=== PATIENT | female | born 2000 | race African-American/Black ===

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

== ENCOUNTER 2023-08-09 13:13 | Emergency (ER) | payer MEDICAID, SELFPAY ==
[2023-08-09 13:18] VITALS: PULSE 82; RESP 20; TEMP 36.5; O2SAT 99
--- NOTE | 2023-08-09 13:45 | DI.RAD_ITS ---
Exam(s) XR ANKLE LT COMPLETE EXAM: XR ANKLE LT COMPLETE CLINICAL HISTORY: left lateral ankle pain. TECHNIQUE: 2D digital imaging was performed. COMPARISON: No exams were available for comparison FINDINGS: 3 views no evidence of acute fracture nor widening of the ankle mortise. Talar dome unremarkable. No degenera tive changes. No osseous tarsal coalition evident. Bone density normal. No osseous lesions IMPRESSION: No fractures. DATA REPOSITORY: RADIATION DOSE DELIVERED:
--- NOTE | 2023-08-09 14:12 | ED.GENADUL_ITS ---
Discharge Plan Disposition Patient Disposition: Home Condition: Good Discharge Details Chief Complaint: Orthopedic Clinical Impression: Left ankle sprain Primary Care Provider: Karin Vo ED Provider: Dion Ca Home Meds and New Rx's Prescriptions: No Action medroxyprogesterone [Depo-Provera] 150 MG/ML suspension 150 mg IM DIRECTED Discharge Instructions Instructions: Ankle Sprain (ED) Additional Instructions: At this time your x-ray shows no evidence of fracture. I do suspect that you have a sprain of the ligaments. We will be giving you a walking boot to utilize at home. Utilize this for the next 1 to 2 weeks to continue to allow the ankle to heal. He can then transition to a walking lace up ankle brace. If you still have continued pain after 1 to 2 weeks of this, you may need further physical therapy on an outpatient basis. Take Tylenol and Motrin as needed for pain. If you notice any worsening of your symptoms, or any new symptoms such as vomiting, diarrhea, fever, chills, shortness of breath, chest pain, numbness, weakness, or fainting , please return immediately to the emergency department for reevaluation. Please follow up with your primary care provider as soon as possible for reassessment and reevaluation. As always, it was a pleasure participating in your medical care today. Referrals: Karin Vo MD [Primary Care Provider] - Medical Decision Making 23-year-old female with a past medical history of Lyme disease, fibromyalgia, presents today for evaluation of left ankle pain for the past month. Patient states that 1 month ago she was walking out of her camper when her left ankle rolled, she had immediate pain and swelling. That has continued over the last month and is gradually improved but still persist with ambulation. It is improved by rest and NSAIDs. She never got initial imaging. She denies any numbness or tingling. She denies any other trauma. No other injury. No other complaints at this time. Exam demonstrates mild tenderness on the lateral aspect of the ankle just inferior to the malleolus. Minimal pain with eversion and inversion. Concern for previous ligamentous injury now with scarring causing pain. Fracture unlikely. We will get x-ray to rule out fracture. X-ray results negative for acute fracture per radiology. Will give walking boot for home use for stability. Discussed red flags for which to return. We will place physical therapy referral. I have extensively reviewed the treatment plan and discharge instructions with the patient. I have addressed all patient concerns at this time. The patient was made aware of what symptoms to monitor for that would warrant a return to the emergency department. Discussed the plan with the patient, they demonstrate verbal understanding and agreement with our assessment and plan at this time. The documentation in this chart was dictated using [employer] dictation software. Please excuse any dictation errors. FINDINGS: 3 views no evidence of acute fracture nor widening of the ankle mortise. Talar dome unremarkable. No degenerative changes. No osseous tarsal coalition evident. Bone density normal. No osseous lesions IMPRESSION: No fractures. HPI General Date/Time Provider Initiated Documentation: 08/09/23 13:34 . HPI Narrative: 23-year-old female with a past medical history of Lyme disease, fibromyalgia, presents today for evaluation of left ankle pain for the past month. Patient states that 1 month ago she was walking out of her camper when her left ankle rolled, she had immediate pain and swelling. That has continued over the last month and is gradually improved but still persist with ambulation. It is improved by rest and NSAIDs. She never got initial imaging. She denies any numbness or tingling. She denies any other trauma. No other injury. No other complaints at this time. Related Data Home Medications Medication Instructions Recorded Confirmed medroxyprogesterone 150 mg/mL 150 mg IM DIRECTED 10/11/17 08/09/23 intramuscular suspension (Depo-Provera) Allergies Allergy/AdvReac Type Severity Reaction Status Date / Time CATS Allergy Uncoded 08/09/23 13:21 General Stated Complaint: Orthopedic HILARIA: 4 Review of Systems All systems reviewed & are unremarkable except as noted in HPI and below PFSH All Active Problems (Updated 08/09/23 @ 14:42 by Dion Ca DO) Left ankle sprain (Acute) Medical History Allergic rhinitis Back pain Lyme disease Patellofemoral disorder of right knee Family History Brother Age: 27 Asthma Brother Age: 24 Essential hypertension Hyperlipidemia Cancer Sister Age: 29 No problems noted. Sister Age: 13 No problems noted. Mother Mental disorder anxiety/depression Father Substance abuse Diabetes GRANDPARENT No problems noted. Other Heart disease Social History Smoking/Tobacco Use Status: Never Smoking risk assessment performed?: Yes Drug use: Never Do you feel safe in your relationship?: Yes Exam Narrative Exam Narrative: 1.Const: Well-nourished, Well-developed, appearing stated age 2.Eyes: PERRL, no conjunctival injection, and symmetrical lids. 3.ENT: Atraumatic external nose and ears. Moist MM. Neck: Symmetric, trachea midline, No thyromegaly. 4.CVS: +S1/S2, No murmurs or gallops. Peripheral pulses 2+ and equal in all extremities. Brisk capillary refill in all extremities. 5.RESP: Unlabored respiratory effort. Clear to auscultation bilaterally. No wheezes rales or rhonchi 6.GI: Soft, Nontender/Nondistended, No hepatosplenomegaly. No guarding or rebound. 7.MSK: Normocephalic/Atraumatic, Extremities w/o deformity exam demonstrates mild tenderness over the lateral aspect just inferior to the lateral malleolus, no pain with flexion or extension. Minimal pain with eversion and inversion. 8.Skin: Warm, Dry. No rashes or lesions. 9.Neuro: databases computer consultant II-XII grossly intact. Sensation grossly intact, no focal neurologic deficits. 10.Psych: (AAO) x3. Appropriate mood and affect Course Vital Signs Vital signs: Vital Signs Temperature 36.5 C 08/09/23 13:18 Pulse 82 08/09/23 13:18 Respiratory Rate 20 08/09/23 13:18 Pulse Oximetry 99 08/09/23 13:18 Temperature 36.5 C 08/09/23 13:18 Temperature Source Oral 08/09/23 13:18 Pulse 82 08/09/23 13:18 Respiratory Rate 20 08/09/23 13:18 Respiratory Effort Normal 08/09/23 13:23 Blood Pressure Position Sitting 08/09/23 13:18 Pulse Oximetry 99 08/09/23 13:18 Oxygen Delivery Method Room Air 08/09/23 13:18 Oxygen Flow Rate 0 08/09/23 13:18 Pain Level 2 08/09/23 13:18 Lab/Test Results Lab/Test Results: POC- Test(urine) Negative
--- NOTE | 2023-08-12 08:11 | NUR.NOTE ---
Accessed chart to locate who the Provider was. This is to complete the Ortho Paperwork Nursing Note:
== END 2023-08-09 14:56 | disposition home or self-care (01) ==
PROVIDERS: Emergency Provider Student in an Organized Health Care Education/Training Program
DX: S93.402A Sprain of unspecified ligament of left ankle, initial encounter (principal); X50.1XXA Overexertion from prolonged static or awkward postures, initial encounter; Y93.01 Activity, walking, marching and hiking
CPT/HCPCS: 29515; 81025; 99283; 73610